=== PATIENT | male | born 1970 | race Two or more races ===

== ENCOUNTER 2025-01-02 15:02 | Inpatient (IN) | payer MEDICAID, OTHER ==
[~2025-01-02] VITALS: Ht 165.1 cm; Wt 78.5 kg
[2025-01-02] MEDS ORDERED: VANCOMYCIN PER PHARMACY 0 MG IV SCH (21:45)
--- NOTE | 2025-01-02 21:49 | ED.PDOC ---
History of Present Illness HPI Comments Mr. Boateng, a 54 y/o gentleman with past medical history significant for learning disability, TBI, seizure disorder on Keppra, anxiety, vitamin-D deficiency, BPH, GERD, psychosis, back pain, multiple joint deformity, chronically wheelchair-bound, baseline bedbound, comes with new onset of left lower leg redness and swelling was found this morning by the patient's facility [facility] in the [facility] while having assisted movements. The patient is accompanied by a facility member but she has limited knowledge of the patient, patient is not able to make appropriate communication, nods head, extremely poor historian likely due to underlying conditions/ disability. The redness is not associated with any trauma, bug bite or pain, tense unilateral diffused redness. PCP Dr. Ayala. Waiting for the fecility to provide further medical history. Chief Complaint: Extremity Swelling Comments redness Time Seen by MD: 15:41 Primary Care Provider: YUVAL Reviewed Notes: Nurses Notes Allergies: Coded Allergies: NO KNOWN ALLERGIES (Unverified , 01/02/25) Information Source: Furniture Removalist Mode of Arrival: Wheelchair Severity: Moderate Timing: Hours Duration: Since onset Prehospital treatment: None Context: SSTI Location: Ex Quality generalized Past Medical History Past Medical History (Other): as above Surgical History (Other): as above Family History Family History (Other): as above Social History Smoker: Unobtainable Alcohol: Unobtainable Drugs: Unobtainable Lives In: Unobtainable Constitutional: reports: chills, diaphoresis, fatigue, fever, malaise, sweats, weakness, others EENTM: denies: blurred vision, double vision, ear bleeding, ear discharge, ear drainage, ear pain, ear ringing, eye pain, eye redness, hearing loss, mouth pain, mouth swelling, nasal discharge, nose bleeding, nose congestion, nose pain, photophobia, tearing, throat pain, throat swelling, voice changes, others Respiratory: denies: cough, hemoptysis, orthopnea, SOB at rest, shortness of breath, SOB with excertion, stridor, wheezing, others Cardiovascular: denies: chest pain, dizzy spells, diaphoresis, Dyspnea on exertion, edema, irregular heart beat, left arm pain, lightheadedness, palpitations, PND, syncope, others Gastrointestinal: denies: abdomen distended, abdominal pain, blood streaked bowels, constipated, diarrhea, dysphagia, difficulty swallowing, hematemesis, melena, nausea, poor appetite, poor fluid intake, rectal bleeding, rectal pain, vomiting, others Genitourinary: denies: burning, dysuria, flank pain, frequency, hematuria, incontinence, penile discharge, penile sore, pain, testicle pain, testicle swelling, urgency, others Neurological: denies: dizziness, fainting, headache, left sided numbness, left sided weakness, numbness, paresthesia, pre-existing deficit, right sided num bness, right sided weakness, seizure, speech problems, tingling, tremors, weakness, others Musculoskeletal: reports: joint swelling, others (leg swelling and redness. ); denies: back pain, gout, joint pain, muscle pain, muscle stiffness, neck pain Integumetry: denies: bruises, change in color, change in hair/nails, dryness, laceration, lesions, lumps, rash, wounds, others Allergic/Immunocompromised: denies: Difficulty Healing, Frequent Infections, Hives, Itching, others Hematologic/Lymphatic: denies: anemia, blood clots, easy bleeding, easy bruising, swollen glands, others Endocrine: denies: excessive hunger, excessive sweating, excessive thirst, excessive urination, flushing, intolerance to cold, intolerance to heat, unexplained weight gain, unexplained weight loss, others Psychiatric: denies: anxiety, bipolar disorder, depression, hopeless, panic disorder, schizophrenia, sleepless, suicidal, others Physical Exam General Appearance: No Apparent Distress HEENT: Normal ENT Inspection, PERRL/EOMI Neck: Non-Tender, Normal Inspection Respiratory: Lungs Clear, No Accessory Muscle Use, No Respiratory Distress, Normal Breath Sounds Cardiovascular: No JVD, No Murmur, Normal Peripheral Pulses, Regular Rate/Rhythm, Other (unilateral leg edema no hx of HF) Breast Exam: Deferred Gastrointestinal: Abnormal Bowel Sounds, No Organomegaly, Non Tender, No Pulsatile Mass, Normal Bowel Sounds, Soft Genitalia: Deferred Pelvic: Deferred Rectal: Deferred Extremities: Calf tenderness, Inflammation, Leg edema, Pedal edema, Slow capillary refill, Swelling Neurologic: Abnormal Gait, No Motor Deficits, Normal Affect, Other (not ambulatory at baseline ) Cerebellar Function: Unable to Test Reflexes: NOT DONE Skin: NOT DONE Lymphatic: NOT DONE Was a procedure done? Was a procedure done?: No Differential Dx Considerations may include: Skin and soft tissue infection, DVT, trauma, lymphatic injury, lymphoma, CHF exacerbation. X-Ray, Labs, Meds, VS Vital Signs Date Time Temp Pulse Resp B/P (MAP) Pulse Ox O2 Delivery O2 Flow Rate FiO2 01/02/25 15:22 98.4 78 16 115/82 (93) 95 98.4 Lab Test 01/02/25 22:43 Range/Units White Blood Count 8.2 4.4-10.8 10^3/uL Red Blood Count 5.39 4.5-5.90 10^6/uL Hemoglobin 16.7 13.5-17.5 g/dL Hematocrit 48.4 41.0-53.0 % Mean Corpuscular Volume 89.8 80.0-100.0 fL Mean Corpuscular Hemoglobin 31.0 28.0-32.0 pg Mean Corpuscular Hemoglobin Concent 34.5 32.0-36.0 g/dL Red Cell Distribution Width 14.1 11.8-14.3 % Platelet Count 308 140-450 10^3/uL Mean Platelet Volume 7.3 6.9-10.8 fL Neutrophils (%) (Auto) 52.7 37.0-80.0 % Lymphocytes (%) (Auto) 32.9 10.0-50.0 % Monocytes (%) (Auto) 7.0 0.0-12.0 % Eosinophils (%) (Auto) 4.8 0.0-7.0 % Basophils (%) (Auto) 2.6 H 0.0-2.0 % Neutrophils # (Auto) 4.3 1.6-8.6 10 ^3/uL Lymphocytes # (Auto) 2.7 0.4-5.4 10 ^3/uL Monocytes # (Auto) 0.6 0-1.3 10 ^3/uL Eosinophils # (Auto) 0.4 0-0.8 10 ^3/uL Basophils # (Auto) 0.2 0-0.2 10 ^3/uL Nucleated Red Blood Cells 0.2 % D-Dimer, Quantitative 0.35 0.0-0.49 mg/L FEU Sodium Level 136 136-145 mmol/L Potassium Level 3.8 3.5-5.1 mmol/L Chloride Level 101 98-107 mmol/L Carbon Dioxide Level 26 20-31 mmol/L Anion Gap 9 5-15 Blood Urea Nitrogen 9 9-23 mg/dL Creatinine 0.98 0.700-1.30 mg/dL Glomerular Filtration Rate Calc 92 >90 mL/min BUN/Creatinine Ratio 9.2 L 10.0-20.0 Serum Glucose 105 74-106 mg/dL Calcium Level 9.8 8.7-10.4 mg/dL Total Bilirubin 0.3 0.2-1.0 mg/dL Aspartate Amino Transferase (AST) 22 13-40 U/L Alanine Aminotransferase (ALT) 34 7-40 U/L Alkaline Phosphatase 96 46-116 U/L B-Type Natriuretic Peptide 9.53 0-100 pg/mL Total Protein 7.9 5.7-8.2 g/dL Albumin 4.5 3.2-4.8 g/dL Images Reviewed?: Images reviewed and evaluated by me Time of 1ST Reevaluation: 19:59 Reevaluation 1ST: Unchanged Time of 2ND Reevaluation: 22:00 Reevaluation 2ND: Unchanged (All workup negative so far no leukocytosis, DVTs negative with U/S bilateral lower leg, distal neuro vascular function intact, no apparent skin abrasion or trauma noted.) Time of 3RD Reevaluation: 22:05 Reevaluation 3RD: Unchanged (Possible diagnosis of skin and soft tissue infection/cellulitis, patient is decided to admit in-hospital for IV antibiotics, started on IV vancomycin, culture sent. Due to patient's learning disability, history is not completely obtain, although medications where broad by the high risk case manager which helped to understand possible baseline health, need further information from the facility. Obtained phone number [phone]. Needs follow up at daytime. Signed out to ED/admitting hospitalist team. Discussed with Dr. Rowland. ) Patient Education/Counseling: Diagnosis, Treatment, Prognosis, Need For Follow Up Family Education/Counseling: Diagnosis, Treatment, Prognosis, Need For Follow Up Comments Discussed with present sales representative raw fibers/high risk case manager [facility] [place]. Sepsis Sepsis Reasesment Focused Exam Sepsis focused exam: focus exam completed, time: Departure 1 Departure Time of Disposition: 21:47 Impression: Primary Impression: DVT (deep venous thrombosis) Qualified Codes: I82.4Z2 - Acute embolism and thrombosis of unspecified deep veins of left distal lower extremity Additional Impression: Cellulitis of foot Disposition: 09 ADMITTED INPATIENT Admit to: Tele Condition: Fair Critical Care Note Critical Care Time?: No Stability Stability form required: No Heart Score Heart Score: Heart Score Response (Comments) Value History N/A 0 EKG N/A 0 Age N/A 0 Risk Factors N/A 0 Troponin N/A 0 Total 0 FELICITA GARVEY RESIDENT Jan 02, 2025 21:49
--- NOTE | 2025-01-02 22:29 | DVH ---
Bilateral lower extremity venous duplex Clinical History: Leg swelling Comparison: None Technique: Duplex Doppler evaluation of the deep venous systems of both lower extremities from the common femora l veins to the popliteal veins including color Doppler and spectral/pulsed waveform analysis was perf ormed. Findings: RIGHT SIDE: The common femoral vein demonstrates appropriate compressibility and waveform variability. There is compressibility/patency of the great saphenous vein at the proximal thigh. The femoral vein demonstrates appropriate compressibility and waveform variability. The deep femoral vein demonstrates appropriate compressibility and waveform variability. The popliteal vein demonstrates appropriate compressibility and waveform variability. There is normal compressibility at the tibioperoneal trunk. LEFT SIDE: The common femoral vein demonstrates appropriate compressibility and waveform variability. There is compressibility/patency of the great saphenous vein at the proximal thigh. The femoral vein demonstrates appropriate compressibility and waveform variability. The deep femoral vein demonstrates appropriate compressibility and waveform variability. The popliteal vein demonstrates appropriate compressibility and waveform variability. There is normal compressibility at the tibioperoneal trunk. Impression: No right or left femoropopliteal venous thrombosis.
--- NOTE | 2025-01-02 22:30 | DVH ---
XY L TIB FIB XRAY, INDICATION: injury to rule out TECHNICAL DATA: Frontal and lateral views were obtained of the left tib fib. COMPARISON: None FINDINGS: There is no osseous abnormality. Soft tissues are normal. IMPRESSION: No acute fracture or dislocation.
[2025-01-02 22:55] LABS: Basophils # (auto) 0.2 10 ^3/uL (0-0.2); Basophils % (auto) 2.6 % (0.0-2.0); Eosinophils # (auto) 0.4 10 ^3/uL (0-0.8); Eosinophils % (auto) 4.8 % (0.0-7.0); Hematocrit 48.4 % (41.0-53.0); Hemoglobin 16.7 g/dL (13.5-17.5); Lymphocytes # (auto) 2.7 10 ^3/uL (0.4-5.4); Lymphocytes % (auto) 32.9 % (10.0-50.0); Mean Corpuscular Hgb Conc. 34.5 g/dL (32.0-36.0); Mean Corpuscular Volume 89.8 fL (80.0-100.0); Monocytes # (auto) 0.6 10 ^3/uL (0-1.3); Neutrophils # (auto) 4.3 10 ^3/uL (1.6-8.6); Neutrophils % (auto) 52.7 % (37.0-80.0); Nucleated Red Blood Cells % 0.2 %; Platelet Count (auto) 308 10^3/uL (140-450); Red Blood Cells 5.39 10^6/uL (4.5-5.90); Red Cell Distribution Width 14.1 % (11.8-14.3); White Blood Cell 8.2 10^3/uL (4.4-10.8)
[2025-01-02 23:16] LABS: Alanine Aminotransferase 34 U/L (7-40); Albumin 4.5 g/dL (3.2-4.8); Alkaline Phosphatase 96 U/L (46-116); Anion Gap 9 (5-15); Aspartate Aminotransferase 22 U/L (13-40); BUN/Creatinine Ratio 9.2 (10.0-20.0); Calcium 9.8 mg/dL (8.7-10.4); Carbon Dioxide 26 mmol/L (20-31); Chloride 101 mmol/L (98-107); Glucose 105 mg/dL (74-106); Potassium 3.8 mmol/L (3.5-5.1); Total Protein 7.9 g/dL (5.7-8.2)
[2025-01-02 23:17] LABS: Bilirubin, Total 0.3 mg/dL (0.2-1.0); Blood Urea Nitrogen 9 mg/dL (9-23); Sodium 136 mmol/L (136-145)
[2025-01-03] VITALS (9 sets, daily range): BP systolic 105–120; BP diastolic 71–87; PULSE 66–84; RESP 16–20; TEMP 97.9–99.5; O2SAT 92–96
--- NOTE | 2025-01-03 02:04 | DVHHPRES ---
History of Present Illness Resident Creating Document: JC WAGGONER RESIDENT History of Present Illness Mr Boateng is a 54 year old male patient with past medical history for learning disability, TBI, seizure disorder, BPH, GERD, psychosis, wheelchair-bound, who presented to the ER from [facility] with a chief complaint of left lower extremity swelling and erythema for the past 4 days per patient. Patient is accompanied by facility member, patient was undergoing physical therapy this morning when they noticed left lower extremity was swollen, painful and red. Facility member has very limited knowledge of the patient. And is primarily Bermudian speaking and only makes hand gestures and one-word answers. Facility member denies patient having any fever, chills, nausea, vomiting shortness of breaths. He did not travel recently or did not have any bites or trauma. Past medical history: learning disability, TBI, seizure disorder, BPH, GERD, psy chosis, wheelchair-bound Home medications: Nexium 20 mg, terbinafine 250 mg, cetirizine 10 mg, lamotrigine 100 mg b.i.d., buspirone 10 mg twice a day, aripiprazole 2 mg daily, baclofen 1 tablet by mouth twice daily, tamsulosin 0.4 mg daily HS Social history: Lives at the facility, denies smoking/drinking/drug use Patient seen and examined in the ER. Smoke: No ALCOHOL: none Drugs: None Lives: Other Review of Systems Musculoskeletal: leg pain Skin: Rash Allergies: Coded Allergies: NO KNOWN ALLERGIES (Unverified , 01/02/25) Medications Current Medications Medications Dose Ordered Sig/Luigi Route Start Time Stop Time Status Last Admin Dose Admin Vancomycin HCl 0 ml @ 0 mls/hr UD IV 01/02/25 21:45 UNV Exam Vital Signs Vital Signs Date Time Temp Pulse Resp B/P (MAP) Pulse Ox O2 Delivery O2 Flow Rate FiO2 01/03/25 00:34 98.3 70 18 131/86 (101) 93 98.3 Exam Male patient sitting in a chair in ER, no acute distress. Patient is aphasic General: Overweight, afebrile, palor, mucosae are moist Cardiovascular: Regular S1 and S2. No murmurs, gallops or rubs. No JVD elevation. No pedal edema Respiratory: Normal B/L air entry on room air. Clear lung sounds on auscultation Abdomen: Soft, nontender, nondistended, normoactive bowel sounds, no rebound tenderness, no organomegaly, no masses Genitourinary: Deferred MSK/skin: Mobilizes 4 limbs. Skin is dry and warm. Left foot is swollen, red, mildly tender. Left foot nail has onychomycosis. Neurological: No motor, no sensitive deficits, normal speech. Pupils are isocoric and reactive. Psych/Mental Status: A/Ox3 Labs/Xrays Labs Test 01/02/25 22:43 Range/Units White Blood Count 8.2 4.4-10.8 10^3/uL Red Blood Count 5.39 4.5-5.90 10^6/uL Hemoglobin 16.7 13.5-17.5 g/dL Hematocrit 48.4 41.0-53.0 % Mean Corpuscular Volume 89.8 80.0-100.0 fL Mean Corpuscular Hemoglobin 31.0 28.0-32.0 pg Mean Corpuscular Hemoglobin Concent 34.5 32.0-36.0 g/dL Red Cell Distribution Width 14.1 11.8-14.3 % Platelet Count 308 140-450 10^3/uL Mean Platelet Volume 7.3 6.9-10.8 fL Neutrophils (%) (Auto) 52.7 37.0-80.0 % Lymphocytes (%) (Auto) 32.9 10.0-50.0 % Monocytes (%) (Auto) 7.0 0.0-12.0 % Eosinophils (%) (Auto) 4.8 0.0-7.0 % Basophils (%) (Auto) 2.6 H 0.0-2.0 % Neutrophils # (Auto) 4.3 1.6-8.6 10 ^3/uL Lymphocytes # (Auto) 2.7 0.4-5.4 10 ^3/uL Monocytes # (Auto) 0.6 0-1.3 10 ^3/uL Eosinophils # (Auto) 0.4 0-0.8 10 ^3/uL Basophils # (Auto) 0.2 0-0.2 10 ^3/uL Nucleated Red Blood Cells 0.2 % D-Dimer, Quantitative 0.35 0.0-0.49 mg/L FEU Sodium Level 136 136-145 mmol/L Potassium Level 3.8 3.5-5.1 mmol/L Chloride Level 101 98-107 mmol/L Carbon Dioxide Level 26 20-31 mmol/L Anion Gap 9 5-15 Blood Urea Nitrogen 9 9-23 mg/dL Creatinine 0.98 0.700-1.30 mg/dL Glomerular Filtration Rate Calc 92 >90 mL/min BUN/Creatinine Ratio 9.2 L 10.0-20.0 Serum Glucose 105 74-106 mg/dL Calcium Level 9.8 8.7-10.4 mg/dL Total Bilirubin 0.3 0.2-1.0 mg/dL Aspartate Amino Transferase (AST) 22 13-40 U/L Alanine Aminotransferase (ALT) 34 7-40 U/L Alkaline Phosphatase 96 46-116 U/L B-Type Natriuretic Peptide 9.53 0-100 pg/mL Total Protein 7.9 5.7-8.2 g/dL Albumin 4.5 3.2-4.8 g/dL Assessment/Plan Assessment/Plan Probable sepsis secondary to likely Left foot cellulitis Ruled out lower extremity DVT History of traumatic brain injury and learning disability History of seizures Benign prostatic hyperplasia History of GERD History of psychosis Wheelchair-bound Plan: Podiatry consulted 1 dose of IV vancomycin given her the ER Started IV vancomycin and IV Zosyn IV NS 1 L bolus followed by 100 cc an hour Resume home medication aripiprazole, buspirone, lamotrigine, Keppra Follow up with MRI, lower extremity arterial Doppler Plan discussed with patient and healthcare facility member in the ER all questions have been answered Case discussed with Dr. Mcmahon Plan discussed with: Patient My Orders Orders - JC WAGGONER Procedure Category Date Status Time Admit ADMIT 01/03/25 Verified 02:02 Bilat Low Ext Art US 01/03/25 Verified Duplex 02:02 Lactic Acid W/ Reflex LAB 01/03/25 Verified Order 02:02 Date of Service: Jan 03, 2025 Billing Provider: MISAEL MCMAHON MD Common Visit Codes: [id number] INP/OBS CARE (HIGH) JC WAGGONER Jan 03, 2025 02:04
[2025-01-03 02:05] LABS: INR 0.97 (0.9-1.15); Partial Thromboplastin Time 27.4 SEC (24.5-34.5); Prothrombin Time 10.3 sec (9.3-11.8)
[2025-01-03 02:29] LABS: Lactic Acid w/Reflex 2.1 mmol/L (0.4-2.0)
[2025-01-03] MEDS ORDERED: MORPHINE SULFATE INJ 2 MG/ml SYRG IV PRN (02:45)
[2025-01-03] MEDS: TAMSULOSIN HYDROCHLORIDE 0.4 MG CAP PO ONE (02:45)
[2025-01-03] MEDS ORDERED: HYDROcodone-ACET 5/325MG TAB PO PRN (02:45)
[2025-01-03] MEDS ORDERED: VANCOMYCIN PER PHARMACY 0 MG IV SCH (02:45)
[2025-01-03] MEDS ORDERED: ACETAMINOPHEN 500 MG TAB or CAP PO PRN (02:45)
[2025-01-03] MEDS: SODIUM CHLORIDE 0.9% 1,000 ML IV ONE (03:01)
[2025-01-03] MEDS: levETIRAcetam 500 MG/5ML ORAL SOLN UD PO SCH ×2 (04:12→20:07)
[2025-01-03] MEDS: SODIUM CHLORIDE 0.9% 1,000 ML IV SCH ×2 (04:27→13:23)
[2025-01-03] MEDS: PIPERACILLIN-TAZOB 3.375GM 100 ML IV SCH ×2 (04:29→13:21)
[2025-01-03] MEDS: PANTOPRAZOLE 40 MG TAB PO SCH (05:53)
[2025-01-03 06:36] LABS: Basophils # (auto) 0.1 10 ^3/uL (0-0.2); Eosinophils # (auto) 0.3 10 ^3/uL (0-0.8); Eosinophils % (auto) 4.5 % (0.0-7.0); Hematocrit 46.2 % (41.0-53.0); Hemoglobin 15.7 g/dL (13.5-17.5); Lymphocytes # (auto) 1.8 10 ^3/uL (0.4-5.4); Lymphocytes % (auto) 23.9 % (10.0-50.0); Mean Corpuscular Hemoglobin 30.7 pg (28.0-32.0); Mean Corpuscular Volume 90.3 fL (80.0-100.0); Monocytes # (auto) 0.5 10 ^3/uL (0-1.3); Monocytes % (auto) 6.2 % (0.0-12.0); Neutrophils # (auto) 4.9 10 ^3/uL (1.6-8.6); Neutrophils % (auto) 64.4 % (37.0-80.0); Nucleated Red Blood Cells % 0.4 %; Platelet Count (auto) 277 10^3/uL (140-450); Red Blood Cells 5.12 10^6/uL (4.5-5.90); White Blood Cell 7.7 10^3/uL (4.4-10.8)
[2025-01-03 06:54] LABS: Alanine Aminotransferase 30 U/L (7-40); Alkaline Phosphatase 83 U/L (46-116); Anion Gap 10 (5-15); Aspartate Aminotransferase 21 U/L (13-40); BUN/Creatinine Ratio 10.5 (10.0-20.0); Bilirubin, Total 0.4 mg/dL (0.2-1.0); Blood Urea Nitrogen 10 mg/dL (9-23); CRP High Sensitivity 0.14 mg/dL (<1.0); Calcium 8.9 mg/dL (8.7-10.4); Carbon Dioxide 25 mmol/L (20-31); Chloride 104 mmol/L (98-107); Glucose 99 mg/dL (74-106); Magnesium 1.8 mg/dL (1.6-2.6); Potassium 3.7 mmol/L (3.5-5.1); Sodium 139 mmol/L (136-145); Total Protein 6.7 g/dL (5.7-8.2)
[2025-01-03 07:14] LABS: Erythrocyte Sedimentation Rate 2 mm/hr (0-20)
[2025-01-03 07:54] LABS: Triglycerides 169 mg/dL (< 150)
[2025-01-03 07:55] LABS: LDL Cholesterol 149 mg/dL (< 100)
[2025-01-03 07:56] LABS: HDL Cholesterol 40 mg/dL (40-59)
[2025-01-03 07:59] LABS: Cholesterol 206 mg/dL (< 200)
--- NOTE | 2025-01-03 08:32 | DVH ---
BILATERAL Lower Extremity Arterial Duplex Date: 01/03/2025 07:36 AM Clinical History: pain; pad Comparison: None Technique: Duplex Doppler evaluation including color Doppler and spectral/pulsed waveform analysis of the lower extremity arteries was performed. Finding: RIGHT: Peak systolic velocities are as follows: SECURITY SOFTWARE ENGINEER 89 cm/s Deep femoral 52 cm/s SFA proximal 76 cm/s SFA mid-portion 97 cm/s SFA distal 81 cm/s Popliteal 51 cm/s Posterior tibial 46 cm/s Anterior tibial 33 cm/s Dorsalis pedis 39 cm/s The waveforms are triphasic with diastolic flow. LEFT: Peak systolic velocities are as follows: SECURITY SOFTWARE ENGINEER 96 cm/s Deep femoral 62 cm/s SFA proximal 72 cm/s SFA mid-portion 72 cm/s SFA distal 74 cm/s Popliteal 71 cm/s Posterior tibial 46 cm/s Anterior tibial 41 cm/s Dorsalis pedis 31 cm/s The waveforms are triphasic with diastolic flow. REFERENCE VALUES, [facility]) vascular Imaging Lab Criteria: Peak systolic velocity ranges (in cm/sec) are as follows: <150 cm/s - <20 % stenosis 150-200 cm/s - 20-49% stenosis 200-300 cm/s - 50-75% stenosis >300 cm/s -> 75% stenosis IMPRESSION: There is no evidence for peripheral vascular insufficiency in the right lower extremity. There is no evidence for peripheral vascular insufficiency in the left lower extremity. No significant focal stenosis is identified.
[2025-01-03] MEDS: lamoTRIgine 100 MG TAB PO SCH (09:36)
[2025-01-03] MEDS: busPIRone HCL 10 MG TAB PO SCH (09:36)
[2025-01-03] MEDS: BACLOFEN 10 MG TAB PO SCH (09:37)
[2025-01-03 10:20] LABS: Urine Bacteria None Seen /hpf (None Seen)
[2025-01-03 10:26] LABS: Urine Blood TRACE /uL (Negative); Urine Clarity Clear (Clear); Urine Color Colorless (Yellow); Urine Protein, UAD Negative (Negative); Urine Specific Gravity 1.011 (1.001-1.035); Urine Squamous Epithelial Cell None Seen /hpf (<5); Urine Urobilinogen Normal (Negative)
[2025-01-03 10:27] LABS: Urine WBC < 1 /HPF (0-3)
--- NOTE | 2025-01-03 10:49 | DVHPNRES ---
Progress Note Date Seen: Jan 03, 2025 Resident Creating Document: NIMISHA GARCIA RESIDENT Has the PT tested + for MRSA If YES, has PT been informed?: No Medical Necessity Reason Pt with a Central, PICC or Fol: No Subjective Review of Systems This is a 54-year-old male with past medical history of learning disability, traumatic brain injury in 2017 while he was on work and after that patient has not been able to walk or perform daily activities. Seizure disorder, BPH, GERD, psychosis, wheelchair-bound who presented to the ED from [facility] due to left lower extremity swelling and erythema for the past four days. According to the interdisciplinary professor, patient has been having chronic left lower extremity swelling and purplish discoloration at the facility for the past couple of weeks. Caregiver is also stating that patient undergoes physical therapy at the facility when they noticed that the left lower extremity was more swollen painful and red compared to before. They were also planning to put a brace in the left lower extremity but it was not able because of the significant swelling of the left lower extremity and foot. Upon admission, initial labs showed unremarkable CBC and BMP came back grossly unremarkable, lipid panel came back significantly elevated. Bilateral lower extremity venous Doppler showed no evidence of DVTs at this time. Tibia x-ray showed no evidence of fracture or dislocations. Scallop Raker also denies any trauma or any possible fall. Patient was started on IV antibiotics and was admitted for further assessment and management of left lower extremity cellulitis. Patient seen and examined at bedside. Patient is Angolan-speaking and speaks very few words due to traumatic brain injury that he had in the past with neurologic sequelae. Patient is able to move all four extremities without complication but he is not able to walk or stand by himself. Scallop Raker was at bedside providing pertinent history. Left lower extremity looks slightly edematous but nonpitting edema. Right lower extremity is grossly unremarkable. There is no significant erythema at the left lower extremity at this time or any discoloration. We will continue IV Zosyn and vancomycin at this time, and we will transition to p.o. antibiotics later on. ROS unable to obtain due to patient's mental status and underlying condition. Objective vital signs Vital Sign Date Time Temp Pulse Resp B/P (MAP) Pulse Ox O2 Delivery O2 Flow Rate FiO2 01/03/25 09:00 98.2 84 20 116/71 (86) 95 98.2 01/03/25 03:14 Room Air* 0 21 Total Intake and Output 01/02/25 01/02/25 01/03/25 15:00 23:00 07:00 Intake Total 1200 ml Output Total 0 ml Balance 1200 ml medications Current Medications Medications Dose Ordered Sig/Luigi Route Start Time Stop Time Status Last Admin Dose Admin Vancomycin HCl 0 ml @ 0 mls/hr UD IV 01/03/25 02:45 Acetaminophen 500 mg Q4HPRN PRN PO 01/03/25 02:45 Acetaminophen/ Hydrocodone Bitart 1 tab Q4HPRN PRN PO 01/03/25 02:45 Morphine Sulfate 1 mg Q4HPRN PRN IV 01/03/25 02:45 Levetiracetam 750 mg BID PO 01/03/25 03:00 01/03/25 09:36 750 MG Buspirone HCl 10 mg Q12HR PO 01/03/25 10:00 01/03/25 09:36 10 MG Baclofen 5 mg BID PO 01/03/25 10:00 01/03/25 09:37 5 MG Patient Own Medication 1 DAILY PO 01/03/25 10:00 Tamsulosin HCl 0.4 mg QPM PO 01/03/25 18:00 Lamotrigine 100 mg Q12HR PO 01/03/25 10:00 01/03/25 09:36 100 MG Pantoprazole Sodium 40 mg DAILY@0600 PO 01/03/25 06:00 Piperacillin Sod/ Tazobactam Sod 100 ml @ 25 mls/hr Q6HR IV 01/03/25 12:00 Sodium Chloride 1,000 ml @ 60 mls/hr [id number] IV 01/03/25 07:30 Vancomycin HCl 200 ml @ 160 mls/hr Q12H IV 01/03/25 16:00 Examination Physical Examination General: Patient is alert and oriented but unable to communicate effectively due to his underlying mental condition. Patient following commands. HEENT: Normocephalic, atraumatic, moist mucous membranes Respiratory/pulmonary: Clear lungs bilaterally, no associated crackles or wheezes. Cardiovascular: Normal heart sounds S1 and S2 with no associated murmurs Abdomen: Abdomen nondistended, there is no pain to palpation in any of the abdominal quadrants, no palpable masses. Extremities: There is left lower extremity nonpitting edema in the left foot and left ankle. Right lower extremities grossly unremarkable. Peripheral Pulses: 3+ Radial (R). 3+ Radial (L). 3+ Dorsalis pedis (R). 3+ Dorsalis pedis(L) Skin: No rashes or pruritus, there is no sacral edema present at this time. Neurological: Patient is not able to speak and communicate effectively after severe traumatic brain injury with neurologic sequelae. Patient unable to walk or stand by himself but he is able to move all four extremities. laboratory and microbiology Laboratory Tests 01/03/25 06:00 Test 01/03/25 06:00 Range/Units Serum Glucose 99 74-106 mg/dL Problem List/Assessment/Plan Problem List/Assessment/Plan Assessment/plan Acute left lower extremity and foot cellulitis Ruled out sepsis Ruled out bilateral lower extremity DVTs -patient still having very mild erythema and swelling of the left lower extremity, but purplish or reddish discoloration has disappeared this time -left tibia x-ray showed no acute fracture dislocations at this time -bilateral lower extremity venous Doppler showed no evidence of DVTs -ordered bilateral arterial Doppler ultrasound which came back showing no significant hemodynamic stenosis in neither right or left lower extremities. -ordered left lower extremity MRI -start IV vancomycin and Zosyn -continue baclofen 5 mg daily Dyslipidemia -lipid panel show elevation of cholesterol, LDL and triglycerides -start atorvastatin 20 mg daily Benign prostatic hyperplasia -continue tamsulosin 0.4 mg daily and monitor for urinary symptoms History of GERD -continue pantoprazole 40 mg daily Seizure disorder, well controlled -continue levetiracetam 750 mg b.i.d. History of psychosis -continue on buspirone 10 mg q.12 -lamotrigine 100 mg q.12 History of traumatic brain injury with neurologic sequelae -patient unable to speak and maintain normal conversation, unable to stand and walk -wheelchair-bound -needs daily assistance for daily activities Goals of care discussed with the patient and interdisciplinary professor at bedside for >30min Plan discussed with Dr. Boyer Plan discussed with: Patient, Other My Orders My Orders Orders - NIMISHA GARCIA Procedure Category Date Status Time Communication Order ORDERS 01/03/25 Transmitted 07:27 Sodium Chloride 0.9% PHA 01/03/25 In Process 07:30 * Wound Consult CONS 01/03/25 Transmitted Date of Service: Jan 03, 2025 Billing Provider: LYNDSEY BOYER DO Common Visit Codes: [id number] INP/OBS CARE(HIGH) NIMISHA GARCIA RESIDENT Jan 03, 2025 10:49 LYNDSEY BOYER DO Jan 05, 2025 22:37
[2025-01-03 10:51] LABS: Amphetamine Screen, Urine Neg (NEGATIVE); Barbiturate Scree,Urine Neg (NEGATIVE); Benzodiazephine Screen, Urine Neg (NEGATIVE); Cannabinoid Screen, Urine Neg (NEGATIVE); Cocaine Screen, Urine Neg (NEGATIVE); Opiate Scree,Urine Neg (NEGATIVE); Phencyclidine Screen, Urine Neg (NEGATIVE)
--- NOTE | 2025-01-03 13:30 | DVH ---
CLINICAL INDICATION: 54 years old, Male; r/o osteomyelitis. COMPARISON: None TECHNIQUE: Multiplanar, multisequence MRI of the left foot was performed without intravenous contrast . Contrast: None. INTERPRETATION: Bones: No evidence of acute fracture. There is no marrow replacing lesion. Joints: Hallux valgus. Hammertoe deformities. Soft tissues: There is diffuse subcutaneous edema in the dorsal, medial and lateral forefoot. No obv ious fluid collection. There is edema within the intrinsic muscles of the foot. High-grade tendon or ligament injury. IMPRESSION: 1. No MR evidence of osteomyelitis in the left foot. 2. Diffuse subcutaneous edema which may reflect cellulitis.
[2025-01-03] MEDS ORDERED: VANCOMYCIN 1GM/200ML PM 200 ML IV SCH (16:00)
[2025-01-03] MEDS: TAMSULOSIN HYDROCHLORIDE 0.4 MG CAP PO SCH (17:51)
[2025-01-03] MEDS ORDERED: BUSP10TA90 PO (18:49)
[2025-01-03] MEDS ORDERED: LEVE500T40 PO (18:49)
[2025-01-03] MEDS ORDERED: BACL10TA PO (18:49)
[2025-01-03] MEDS ORDERED: ARIP2TAB PO (18:49)
[2025-01-03] MEDS ORDERED: ACET-1882 PO (18:49)
[2025-01-03] MEDS ORDERED: TAMS1CAP25 PO (18:49)
[2025-01-03] MEDS ORDERED: LORA-1121 PO (18:49)
[2025-01-03] MEDS ORDERED: LAM100T PO (18:49)
[2025-01-03] MEDS ORDERED: ESOM1CAP37 PO (18:49)
[2025-01-03] MEDS: CLINDAMYCIN HCL 150 MG CAP PO SCH (21:25)
[2025-01-03] MEDS: ATORVASTATIN 20 MG TAB PO SCH (21:25)
[2025-01-04 01:00] VITALS: BP 111/77; PULSE 76; RESP 18; TEMP 98.1; O2SAT 93
[2025-01-04] MEDS: levETIRAcetam 500 MG/5ML ORAL SOLN UD PO SCH (01:51)
[2025-01-04 05:00] VITALS: BP 103/64; PULSE 72; RESP 17; TEMP 98.1; O2SAT 94
[2025-01-04 08:00] VITALS: PULSE 80; RESP 17; O2SAT 96
[2025-01-04 09:00] VITALS: BP 126/70; PULSE 80; RESP 17; TEMP 98.3; O2SAT 96
[2025-01-04 10:56] LABS: Hepatitis B Surface Antigen Negative (Negative); Hepatitis C Antibody Negative (Negative)
[2025-01-04] MEDS ORDERED: CEPH500C PO (11:29)
--- NOTE | 2025-01-04 12:26 | DVHDSRES ---
Discharge Summary Date of Admission Resident Creating Document: NIMISHA GARCIA RESIDENT Jan 03, 2025 at 02:02 Date of Discharge: Jan 04, 2025 Admitting Diagnosis Left lower extremity cellulitis and edema Wounds: No wounds present at this time. Labs/Diagnostic Data: Laboratory Results Test 01/03/25 09:55 01/03/25 06:00 01/02/25 22:43 Urine Color Colorless (Yellow) Urine Clarity Clear (Clear) Urine pH 7.0 (5.0-9.0) Urine Specific [place] 1.011 (1.001-1.035) Urine Protein Negative (Negative) Urine Ketones Negative (Negative) Urine Blood Trace /uL (Negative) Urine Nitrite Negative (Negative) Urine Bilirubin Negative (Negative) Urine Urobilinogen Normal mg/dL (Negative) Urine Leukocyte Esterase Negative /uL (Negative) Urine RBC 2 /hpf (0 - 3) Urine Microscopic WBC < 1 /HPF (0-3) Urine Squamous Epithelial Cells None seen /hpf (<5) Urine Bacteria None seen /hpf (None Seen) Urine Glucose Normal mg/dL (Normal) Urine Opiates Screen Neg (NEGATIVE) Urine Fentanyl Screen Neg (NEGATIVE) Urine Barbiturates Screen Neg (NEGATIVE) Urine Phencyclidine Screen Neg (NEGATIVE) Urine Amphetamines Screen Neg (NEGATIVE) Urine Benzodiazepines Screen Neg (NEGATIVE) Urine Cocaine Screen Neg (NEGATIVE) Urine Cannabinoids Screen Neg (NEGATIVE) White Blood Count 7.7 10^3/uL (4.4-10.8) Red Blood Count 5.12 10^6/uL (4.5-5.90) Hemoglobin 15.7 g/dL (13.5-17.5) Hematocrit 46.2 % (41.0-53.0) Mean Corpuscular Volume 90.3 fL (80.0-100.0) Mean Corpuscular Hemoglobin 30.7 pg (28.0-32.0) Mean Corpuscular Hemoglobin Concent 34.0 g/dL (32.0-36.0) Red Cell Distribution Width 14.0 % (11.8-14.3) Platelet Count 277 10^3/uL (140-450) Mean Platelet Volume 7.6 fL (6.9-10.8) Neutrophils (%) (Auto) 64.4 % (37.0-80.0) Lymphocytes (%) (Auto) 23.9 % (10.0-50.0) Monocytes (%) (Auto) 6.2 % (0.0-12.0) Eosinophils (%) (Auto) 4.5 % (0.0-7.0) Basophils (%) (Auto) 1.0 % (0.0-2.0) Neutrophils # (Auto) 4.9 10 ^3/uL (1.6-8.6) Lymphocytes # (Auto) 1.8 10 ^3/uL (0.4-5.4) Monocytes # (Auto) 0.5 10 ^3/uL (0-1.3) Eosinophils # (Auto) 0.3 10 ^3/uL (0-0.8) Basophils # (Auto) 0.1 10 ^3/uL (0-0.2) Nucleated Red Blood Cells 0.4 % Erythrocyte Sedimentation Rate 2 mm/hr (0-20) Sodium Level 139 mmol/L (136-145) Potassium Level 3.7 mmol/L (3.5-5.1) Chloride Level 104 mmol/L (98-107) Carbon Dioxide Level 25 mmol/L (20-31) Anion Gap 10 (5-15) Blood Urea Nitrogen 10 mg/dL (9-23) Creatinine 0.95 mg/dL (0.700-1.30) Glomerular Filtration Rate Calc 95 mL/min (>90) BUN/Creatinine Ratio 10.5 (10.0-20.0) Serum Glucose 99 mg/dL (74-106) Lactic Acid Level 1.6 mmol/L (0.4-2.0) Calcium Level 8.9 mg/dL (8.7-10.4) Magnesium Level 1.8 mg/dL (1.6-2.6) Total Bilirubin 0.4 mg/dL (0.2-1.0) Aspartate Amino Transferase (AST) 21 U/L (13-40) Alanine Aminotransferase (ALT) 30 U/L (7-40) Alkaline Phosphatase 83 U/L (46-116) C-Reactive Protein High Sensitivity 0.14 mg/dL (<1.0) Total Protein 6.7 g/dL (5.7-8.2) Albumin 4.0 g/dL (3.2-4.8) Triglycerides Level 169 mg/dL (< 150) Cholesterol Level 206 mg/dL (< 200) LDL Cholesterol 149 mg/dL (< 100) HDL Cholesterol 40 mg/dL (40-59) Vitamin B12 Level 423 pg/mL (211-911) Vitamin D 25-Hydroxy 82.5 ng/mL (30.0-100) Thyroid Stimulating Hormone (TSH) 2.40 uIU/mL (0.55-4.78) Hepatitis B Surface Antigen Negative (Negative) Hepatitis C Antibody Negative (Negative) Prothrombin Time 10.3 sec (9.3-11.8) Prothrombin Time INR 0.97 (0.9-1.15) Activated Partial Thromboplast Time 27.4 SEC (24.5-34.5) D-Dimer, Quantitative 0.35 mg/L FEU (0.0-0.49) Hemoglobin A1c 5.5 % A1C (<5.7) B-Type Natriuretic Peptide 9.53 pg/mL (0-100) Other Laboratory Tests 01/03/25 06:00 Brief Hx & Hospital Course: This is a 54-year-old male with past medical history of learning disability, traumatic brain injury in 2017 while he was on work and after that patient has not been able to walk or perform daily activities. Seizure disorder, BPH, GERD, psychosis, wheelchair-bound who presented to the ED from [facility] due to left lower extremity swelling and erythema for the past four days. According to the environmental protection forester, patient has been having chronic left lower extremity swelling and purplish discoloration at the facility for the past couple of weeks. Caregiver is also stating that patient undergoes physical therapy at the facility when they noticed that the left lower extremity was more swollen painful and red compared to before. They were also planning to put a brace in the left lower extremity but it was not able because of the significant swelling of the left lower extremity and foot. Upon admission, initial labs showed unremarkable CBC and BMP came back grossly unremarkable, lipid panel came back significantly elevated. Bilateral lower extremity venous Doppler showed no evidence of DVTs at this time. Tibia x-ray showed no evidence of fracture or dislocations. Special Service Representative also denies any trauma or any possible fall. Patient was started on IV antibiotics. Yesterday night, patient was transitioned from IV vancomycin and Zosyn to p.o. clindamycin. Today, patient was seen and examined at bedside. Left lower extremity edema has decreased significantly compared to admission and there is no erythema or warmth sensation to touch. Patient has no further complaints at this time. There were no overnight fever/chills or any other symptoms. We spoke to caregiver and patient and both agreed on discharging the patient on p.o. antibiotics Keflex 500 mg q.i.d. for five additional days to complete therapy. Patient will be discharged home to [facility] and the institution will provide transportation and pick pulling machine operator the patient. Patient and environmental protection forester agreed with the plan. ROS unable to obtain due to patient mental underlying condition. Physical Examination General: Patient is alert and oriented but unable to communicate effectively due to his underlying mental condition. Patient following commands. HEENT: Normocephalic, atraumatic, moist mucous membranes Respiratory/pulmonary: Clear lungs bilaterally, no associated crackles or wheezes. Cardiovascular: Normal heart sounds S1 and S2 with no associated murmurs Abdomen: Abdomen nondistended, there is no pain to palpation in any of the abdominal quadrants, no palpable masses. Extremities: There is very minimal lower extremity nonpitting edema at this time that has improved considerably compared to admission. There is no erythema, warm sensation to touch or any other sign of infection at this time. Right lower extremities grossly unremarkable. Peripheral Pulses: 3+ Radial (R). 3+ Radial (L). 3+ Dorsalis pedis (R). 3+ Dorsalis pedis(L) Skin: No rashes or pruritus, there is no sacral edema present at this time. Neurological: Patient is not able to speak and communicate effectively after severe traumatic brain injury with neurologic sequelae. Patient unable to walk or stand by himself but he is able to move all four extremities. Consults/Reason for consult N/A Operations or Procedures Bilateral lower extremity venous duplex Clinical History: Leg swelling Comparison: None Technique: Duplex Doppler evaluation of the deep venous systems of both lower extremities from the common femoral veins to the popliteal veins including color Doppler and spectral/pulsed waveform analysis was performed. Findings: RIGHT SIDE: The common femoral vein demonstrates appropriate compressibility and waveform variability. There is compressibility/patency of the great saphenous vein at the proximal thigh. The femoral vein demonstrates appropriate compressibility and waveform variability. The deep femoral vein demonstrates appropriate compressibility and waveform variability. The popliteal vein demonstrates appropriate compressibility and waveform variability. There is normal compressibility at the tibioperoneal trunk. LEFT SIDE: The common femoral vein demonstrates appropriate compressibility and waveform variability. There is compressibility/patency of the great saphenous vein at the proximal thigh. The femoral vein demonstrates appropriate compressibility and waveform variability. The deep femoral vein demonstrates appropriate compressibility and waveform variability. The popliteal vein demonstrates appropriate compressibility and waveform variability. There is normal compressibility at the tibioperoneal trunk. Impression: No right or left femoropopliteal venous thrombosis. XY L TIB FIB XRAY, INDICATION: injury to rule out TECHNICAL DATA: Frontal and lateral views were obtained of the left tib fib. COMPARISON: None FINDINGS: There is no osseous abnormality. Soft tissues are normal. IMPRESSION: No acute fracture or dislocation. BILATERAL Lower Extremity Arterial Duplex Date: 01/03/2025 07:36 AM Clinical History: pain; pad Comparison: None Technique: Duplex Doppler evaluation including color Doppler and spectral/pulsed waveform analysis of the lower extremity arteries was performed. Finding: RIGHT: Peak systolic velocities are as follows: ACIDITY TESTER 89 cm/s Deep femoral 52 cm/s SFA proximal 76 cm/s SFA mid-portion 97 cm/s SFA distal 81 cm/s Popliteal 51 cm/s Posterior tibial 46 cm/s Anterior tibial 33 cm/s Dorsalis pedis 39 cm/s The waveforms are triphasic with diastolic flow. LEFT: Peak systolic velocities are as follows: ACIDITY TESTER 96 cm/s Deep femoral 62 cm/s SFA proximal 72 cm/s SFA mid-portion 72 cm/s SFA distal 74 cm/s Popliteal 71 cm/s Posterior tibial 46 cm/s Anterior tibial 41 cm/s Dorsalis pedis 31 cm/s The waveforms are triphasic with diastolic flow. REFERENCE VALUES, [facility] ([facility]) vascular Imaging Lab Criteria: Peak systolic velocity ranges (in cm/sec) are as follows: <150 cm/s - <20 % stenosis 150-200 cm/s - 20-49% stenosis 200-300 cm/s - 50-75% stenosis >300 cm/s -> 75% stenosis IMPRESSION: There is no evidence for peripheral vascular insufficiency in the right lower extremity. There is no evidence for peripheral vascular insufficiency in the left lower extremity. No significant focal stenosis is identified. CLINICAL INDICATION: 54 years old, Male; r/o osteomyelitis. COMPARISON: None TECHNIQUE: Multiplanar, multisequence MRI of the left foot was performed without intravenous contrast. Contrast: None. INTERPRETATION: Bones: No evidence of acute fracture. There is no marrow replacing lesion. Joints: Hallux valgus. Hammertoe deformities. Soft tissues: There is diffuse subcutaneous edema in the dorsal, medial and lateral forefoot. No obvious fluid collection. There is edema within the intrinsic muscles of the foot. High-grade tendon or ligament injury. IMPRESSION: 1. No MR evidence of osteomyelitis in the left foot. 2. Diffuse subcutaneous edema which may reflect cellulitis. Condition at Discharge: Stable Final Diagnosis/Problems List Acute left lower extremity and foot cellulitis Ruled out sepsis Ruled out bilateral lower extremity DVTs Dyslipidemia Benign prostatic hyperplasia History of GERD Seizure disorder, well controlled History of psychosis History of traumatic brain injury with neurologic sequelae Discharge Disposition: Home Discharge Instruct/Medications Diet: Regular Activity: No Restrictions, As Tolerated Follow Up/Referral: F/U with his PCP in 1 week Medications: Kephlex 500mg QID for 5 days continue home medications Discharge Statement: "Patient was advised to return to the ER or call 911 if any headaches, dizziness, shortness of breath, chest pain, abdominal pain, bleeding, fevers, or worsening of medical condition. Patient was counseled about treatment plan, medications, possible side effects, patientverbalized understanding. All questions were answered to the best of my ability. This discharge took greater then 30 minutes in planning, reviewing documentation, counseling the patient, and discussing with other team members." ASSESSMENT ASSESSMENT Assessment Acute left lower extremity and foot cellulitis Ruled out sepsis Ruled out bilateral lower extremity DVTs Dyslipidemia Benign prostatic hyperplasia History of GERD Seizure disorder, well controlled History of psychosis History of traumatic brain injury with neurologic sequelae Date of Service: Jan 04, 2025 Billing Provider: LYNDSEY BOYER DO Common Visit Codes: 97925-CAA/OBS DISCH DAY >30min NIMISHA GARCIA RESIDENT Jan 04, 2025 12:26 LYNDSEY BOYER DO Jan 05, 2025 22:38
== END 2025-01-04 14:35 | disposition home or self-care (01) | DRG 383 ==
LOC: ER 15:02 → OVERFLOW 01-03 02:02 → EAST 01-03 03:47 → WEST WING 01-03 11:05
PROVIDERS: ADMIT Internal Medicine; ATTEND Internal Medicine
DX: L03.116 Cellulitis of left lower limb (principal); F29 Unspecified psychosis not due to a substance or known physiological condition; E78.5 Hyperlipidemia, unspecified; N40.0 Benign prostatic hyperplasia without lower urinary tract symptoms; G40.909 Epilepsy, unspecified, not intractable, without status epilepticus; F17.200 Nicotine dependence, unspecified, uncomplicated; K21.9 Gastro-esophageal reflux disease without esophagitis; F41.9 Anxiety disorder, unspecified; Z99.3 Dependence on wheelchair; Z87.820 Personal history of traumatic brain injury; Z74.01 Bed confinement status; Z79.899 Other long term (current) drug therapy; F81.9 Developmental disorder of scholastic skills, unspecified
CPT/HCPCS: 36415; 73590; 73718; 80053; 80061; 80307; 81001; 82306; 82607; 83036; 83605; 83735; 83880; 84443; 85025; 85379; 85610; 85652; 85730; 86141; 86803; 87040; 87081; 87340; 93925; 93970; G0378; J2543